=== PATIENT | female | born 1970 | race Caucasian/White ===

== ENCOUNTER 2017-01-13 06:19 | Day surgery (SDC) | payer OTHER ==
[~2017-01-13] VITALS: Ht 154.9 cm; Wt 78.8 kg
[~2017-01-13 06:19] MED LIST: LEXAPRO20 MG PO; NORCO 325 MG-51 TAB PO; PAIN RELIEF AD200 MG PO
[2017-01-13] MEDS ORDERED: ADDERALL5 MG PO (07:05)
[2017-01-13 07:07] VITALS: BP 108/55; PULSE 59; TEMP 98.4
[2017-01-13 07:55] VITALS: BP 102/62; PULSE 69; TEMP 97
[2017-01-13 08:10] VITALS: BP 110/97; PULSE 62
[2017-01-13 08:25] VITALS: BP 103/47; PULSE 62
== END 2017-01-13 08:45 | disposition home or self-care (01) ==
LOC: SDCO 06:19
DX: K21.0 Gastro-esophageal reflux disease with esophagitis (principal); R13.12 Dysphagia, oropharyngeal phase; R19.7 Diarrhea, unspecified; Z85.038 Personal history of other malignant neoplasm of large intestine; K63.89 Other specified diseases of intestine; Z85.3 Personal history of malignant neoplasm of breast
CPT/HCPCS: J2250; J2405; J3010; J7030

== ENCOUNTER → 2024-07-17 | Outpatient (CLI) | payer OTHER ==
[2024-07-17] VITALS (12 sets, daily range): BP systolic 123–158; BP diastolic 61–89; PULSE 63–71; TEMP 98.1
[~2024-07-17] VITALS: Ht 154.9 cm; Wt 90.3 kg
[~2024-07-17] MED LIST changes: +ADDERALL5 MG PO; +GLUCOPHAGE500 MG/TAB PO; +TRULICITY0.75 MG/0. SQ
[2024-07-17 08:24] LABS: INR 1.1 (0.8-3.0); PROTHROMBIN TIME 11.5 SECONDS (9.7-12.8)
--- NOTE | 2024-07-17 08:40 | NUR ---
Pt to ct per wheelchair. Pt up and onto ct table in supine position. Monitors applied.
--- NOTE | 2024-07-17 08:58 | NUR ---
Specimens obtained and placed in formalin by Dr Jackson. Specimen labeled.
== END ==
LOC: COL.RAD 07:30
PROVIDERS: Radiology Diagnostic Radiology
DX: K76.0 Fatty (change of) liver, not elsewhere classified (principal); K64.9 Unspecified hemorrhoids; R74.8 Abnormal levels of other serum enzymes